=== PATIENT | male | born 1985 | race Caucasian/White ===

== ENCOUNTER 2020-04-08 12:33 | Inpatient (IN) | payer MEDICARE, MEDICAID, SELFPAY ==
[2020-04-08 12:38] VITALS: BP 130/86; PULSE 84; RESP 18; TEMP 36.9; O2SAT 100; BMI 28.7
--- NOTE | 2020-04-08 13:05 | ED.DCSUM_ITS ---
- ER Visit Summary Date of Service: 04/08/20 Chief Complaint: Detox from heroin, nausea, vomiting, and bilateral flank pain History of Present Illness: The patient is a 34 M who presents requesting detox from heroin. Patient states his last use was 8 AM today. Patient states he uses a couple points per day. Patient states he does use daily. Patient states he snorts his heroin. Patient denies any prior detox. Patient denies any suicidal or homicidal ideations. Patient states he also has some abdominal pain and bilateral flank pain. Patient states his pain is dull in his kidney area and is sharp in his abdomen. Patient states Phenergan helps with the nausea. Patient denies any dysuria or hematuria. Patient denies any fevers or chills. Physical Examination: Vital signs are stable. Patient is afebrile. Patient is in no acute distress. Oral mucosa is pink and moist. Neck is supple. Trachea is midline. There is no JVD noted. Heart was regular rate and rhythm. Lungs are clear and equal bilaterally. Abdomen is soft. Bowel sounds are normal. There is no tenderness. There is no rebound or guarding noted. Skin is warm dry. Cranial nerves II through XII are intact. There are no focal motor or sensory deficits noted. Extremities are intact. There is no calf tenderness or edema. Test Results: BC shows a mild leukocytosis of 14.0. Hemoglobin was 17.1. Creatinine was slightly elevated at 1.33. ALT was slightly elevated at 95. Lipase was normal. Urinalysis does not show any evidence of urinary tract infection. Urine tox screen was positive for opiates and cannabinoids. Serum alcohol level was negative. COVID-19 rapid antigen was negative. Emergency Department Course and Treatment: Patient was given IV fluids. Case was discussed with the hospitalist. He will admit the patient to his service. Patient understood and was agreeable with the plan. All questions were answered. Disposition: Admit to hospital Impression: 1. Opiate dependence This note was generated with [employer] dictation software. It may contain incorrect words, spelling, and punctuation that were not noted in review of the chart prior to signing ED Disposition - Plan for ED Patient: Disposition: Acute Care Hospital [facility] Diagnosis: Opiate dependence Referrals: NOT,DEFINED [Primary Care Provider] -
[2020-04-08] MEDS: Ondansetron 4 MG/2 ML Vial IV (13:13)
[2020-04-08 13:14] LABS: Bacteria 0 SEEN /hpf (None Seen); Red Blood Cells-Urine 0 SEEN /hpf (0-5); Squamous Epithelial Cells - UA 0 SEEN /hpf (0-5)
[2020-04-08 13:17] LABS: Color, Urine Yellow (Yellow); Glucose, Dipstick Normal (Normal); Leukocyte Esterase-Dipstick 25 /ul (Negative); Nitrite-Dipstick Negative (Negative); Occult Blood-Urine 25 /ul (Negative); Protein-Dipstick 100 mg/dl (Negative); Specific Gravity, Urine 1.025 (1.002-1.030); Urine Clarity Clear (Clear); Urine Urobilinogen 4 mg/dl (Normal)
[2020-04-08 13:18] LABS: Ketone-Dipstick 150 mg/dl (Negative); Urine Bilirubin Dipstick 1 mg/dL (Negative)
[2020-04-08 13:23] LABS: Absolute Lymphocyte Count 1.48 X10^3/uL (0.83-4.51); Absolute Neutrophil Count 11.4 X10^3/uL (2.0-7.7); Basophil# 0.04 X10^3/uL; Basophil% 0.3 % (0-1); Hemoglobin 17.1 g/dL (13.0-16.5); Lymphocyte # 1.48 X10^3/ul (4.0); Lymphocyte % 10.6 % (19-41); Mean Corp Hgb Conc 33.5 g/dL (32-36); Mean Corpuscular Hgb 27.2 pg (27.0-32.0); Mean Corpuscular Volume 81.2 fL (80-94); Mean Platelet Vol. 9.7 fl (6.2-12.0); Monocyte# 1.05 X10^3/uL; Monocyte% 7.5 % (0-10); NRBC Flagged by Analyzer 0 % (0-5); Neutrophil % 81.2 % (47-70); Platelet Count 359 K/mm3 (150-450); RBC Distribution Width CV 13.5 % (11.6-14.6); RBC Distribution Width SD 39.7 fl (35.1-43.9); Red Blood Count 6.28 M/mm3 (4.6-6.2)
[2020-04-08 13:25] LABS: Mucous, Urine 2+ /hpf (<or=2+); White Blood Cells 0-5 SEEN /hpf (0-5)
[2020-04-08 13:26] LABS: Hyaline Cast 0-5 SEEN /lpf (0-5)
[2020-04-08 13:36] LABS: Amphetamine Urine VISTA NEGATIVE (<1000 ng/mL); Barbiturate Urine VISTA NEGATIVE (< 200 ng/mL); Benzodiazepine Urine VISTA NEGATIVE (< 200 ng/mL); Cocaine Urine VISTA NEGATIVE (< 300 ng/mL); Ecstacy Urine VISTA NEGATIVE (< 500 ng/mL); Methadone Urine VISTA NEGATIVE (< 300 ng/mL); PCP Urine VISTA NEGATIVE (< 25 ng/mL); THC Urine VISTA POSITIVE (< 50 ng/mL); Vista UDS pH Range 6
[2020-04-08 13:40] LABS: ALB/GLOB Ratio 1.1 RATIO (0.9-2.4); AST(SGOT) 33 U/L (15-37); Alanine Aminotransfer ALT/SGPT 95 U/L (16-61); Albumin, Serum 4.3 g/dL (3.2-5.0); Alkaline Phosphatase 88 U/L (45-117); Anion Gap 11 (5-15); BUN 17 mg/dL (7-18); BUN/Creat Ratio 12.8 RATIO (10-20); Calcium,Total 9.5 mg/dL (8.5-10.1); Chloride 98 mmol/L (98-107); Creatinine, Serum 1.33 mg/dL (0.70-1.30); EST Glomerular Filtration Rate 66 mL/min (>60); Est Glom Filt Rate - Afr Amer 79 mL/min (>60); Estimated Creatinine Clearance 94.42 ml/min; Globulin 3.8 g/dL (2.2-4.2); Glucose 139 mg/dL (74-106); Lipase 45 U/L (73-393); Potassium 3.3 mmol/L (3.5-5.1); Protein, Total 8.1 g/dL (6.4-8.2); Sodium Level 136 mmol/L (136-145)
[2020-04-08 13:48] LABS: Alcohol, Blood (Medical)-Serum < 3.0 mg/dL
[2020-04-08 14:34] VITALS: BMI 28.7
--- NOTE | 2020-04-08 14:41 | CM.ED ---
SOCIAL WORK Reason for Consult: Substance Abuse-requesting detox from heroin Met with patient in room. Introduced role and reason for referral. Patient states follows with [facility] and was sent in by [facility] for detox. Patient reports last use of heroin was at 8am this morning. Support and encouragement provided. Call to Deyanira with [facility] to update on patient's admission. Plan: BOOKER Holguin, GARMENT WORKER, SECURITY PROFESSIONAL
[2020-04-08 15:02] VITALS: BP 130/86; PULSE 84; RESP 18; TEMP 36.9; O2SAT 100
--- NOTE | 2020-04-08 15:08 | HP.PCM_ITS ---
History of Present Illness Date of Admission: 04/08/20 Chief Complaint: Opiate detox The patient is a 34 year old M with a PMH as below presents to the hospital after using heroin this morning at 8 AM. He states that he had been clean previously for about a year and a half using a 12-step program however he r elapsed and now would like to try to get clean again. He does not use IV heroin he only snorts it. Denies any hepatitis C or HIV history and states that he does not use needles. He said that he also had some nausea and vomiting that started last night though he feels okay today. He does have some bilateral flank pain which is similar to what he had about a month ago when he was at [facility] and told that he had some kidney damage. In the ER today his creatinine is 1.33 with potassium of 3.3 does have a white count of 14 with a hemoglobin of 17.1, but denies any fevers or chills, or any illness other than trying to have some withdrawal symptoms from heroin. Past Medical History Allergies No Known Allergies Allergy (Verified 04/08/20 12:38) Home Medications: Ambulatory Orders Medication Instructions Recorded Benztropine [Cogentin] 1 mg PO QHS 04/08/20 Divalproex Sodium [Depakote ER] 500 mg PO BID 04/08/20 Papaya [Papaya Enzyme] 1 ea PO DAILY 04/08/20 Risperidone 2 mg PO BID 04/08/20 proMETHazine tablet [Phenergan 25 mg PO Q6H PRN PRN 04/08/20 tablet] traZODone [Desyrel] 50 mg PO QHS 04/08/20 Surgical History: - - Ankle surgery Smoking Status: Current every day smoker Tobacco Use: Cigarettes, Cigars, Chew, Pipe, Vapor Alcohol: None Drugs: Heroin - *Family History Maternal History Items: No pertinent history Paternal History Items: Heart Disease Review of Systems Constitutional: Denies: Chills, Fever, Weight Change HEENT: Denies: Head Aches, Sinus Congestion, Sinus Drainage Cardiovascular: Denies: Chest Pain, Palpitations Respiratory: Denies: Cough, Shortness of breath at rest, Sputum production Gastrointestinal: Reports: Nausea, Vomiting. Denies: Abdominal Pain Genitourinary: Denies: Dysuria Musculoskeletal: Denies: Joint Pain, Joint Tenderness Skin: Denies: Rash, Wounds Neurological: Reports: Tremor. Denies: Focal weakness, Numbness, Tingling Psychiatric: Denies: Anxiety, Depression Hematologic/ Lymphatic: Denies: Easy Bruising, Easy Bleeding VTE Information - Inpt Only VTE Present on Admission: No Patient Problems: Active and Suspected Problems Opiate dependence (Acute) - Physical Exam Vitals/I&O's: Vital Signs Temp Pulse Resp BP Pulse Ox 98.5 F 84 18 130/86 H 100 04/08/20 15:02 04/08/20 15:02 04/08/20 15:02 04/08/20 15:02 04/08/20 15:02 Oxygen Delivery Method Room Air Weight: 230 lb Body Mass Index (BMI) 28.7 General: Alert, Oriented x3, Cooperative, No apparent distress HEENT: Atraumatic, PERRLA, EOMI, Normocephalic Oral: Dry Mucosa Neck: Supple, No JVD Lungs: Clear to auscultation, Normal air movement, No rhonchi, No wheeze, No rales Cardiovascular: Regular rate, Regular Rhythm, Normal S1, Normal S2, No murmurs Abdomen: Soft, Non Tender, Non-Distended, No Hepato-splenomegaly Extremities: No edema, Capillary Refill Less than 3 Seconds Skin: No rashes, No breakdown Neurological: Neuro grossly intact, Sensory exam intact to light touch and pain Psych/Mental Status: Restless Microbiology Past 72 Hours 04/08/20 13:02 Mucosa - Nose SARS-CoV-2 Antigen (Rapid) - Final Laboratory Results 04/08/20 12:40: Urine Color Yellow, Urine Clarity Clear, Urine pH 6.0, Ur Specific [place] 1.025, Urine Protein 100 H, Urine Glucose (UA) Normal, Urine Ketones 150 H, Urine Occult Blood 25 H, Urine Nitrite Negative, Urine Bilirubin 1 H, Urine Urobilinogen 4 H, Ur Leukocyte Esterase 25 H, Urine RBC 0 SEEN, Urine WBC 0-5 SEEN, Ur Squamous Epith Cells 0 SEEN, Urine Bacteria 0 SEEN, Hyaline Casts 0-5 SEEN, Urine Mucus 2+ 04/08/20 12:40: Urine Opiates Screen POSITIVE H, Urine Methadone Screen NEGATIVE, Ur Barbiturates Screen NEGATIVE, Ur Phencyclidine Scrn NEGATIVE, Ur Amphetamines Screen NEGATIVE, U Methamphetamin-MDMA NEGATIVE, U Benzodiazepines Scrn NEGATIVE, Urine Cocaine Screen NEGATIVE, U Cannabinoids Screen POSITIVE H, Ur Drug Screen Comment 04/08/20 13:16: WBC 14.0 H, RBC 6.28 H, Hgb 17.1 H, Hct 51.0, MCV 81.2, MCH 27.2, MCHC 33.5, RDW Std Deviation 39.7, RDW Coeff of Jethro 13.5, Plt Count 359, MPV 9.7, Immature Gran % (Auto) 0.400, Neut % (Auto) 81.2 H, Lymph % (Auto) 10.6 L, [place] % (Auto) 7.5, Eos % (Auto) 0.0, Baso % (Auto) 0.3, Absolute Neuts (auto) 11.4 H, Absolute Lymphs (auto) 1.48, Nucleated RBC % 0 04/08/20 13:16: Sodium 136, Potassium 3.3 L, Chloride 98, Carbon Dioxide 27.0, Anion Gap 11, BUN 17, Creatinine 1.33 H, Estim Creat Clear Calc 94.42, Est GFR (MDRD) Af Amer 79, Est GFR (MDRD) Non-Af 66, BUN/Creatinine Ratio 12.8, Glucose 139 H, Calcium 9.5, Total Bilirubin 0.50, AST 33, ALT 95 H, Alkaline Phosphatase 88, Total Protein 8.1, Albumin 4.3, Globulin 3.8, Albumin/Globulin Ratio 1.1, Lipase 45 L 04/08/20 13:16: Ethyl Alcohol < 3.0 Current Medications Benztropine Mesylate (Benztropine 2 Mg Tablet) 1 mg PO QHS [facility] Divalproex Sodium (Divalproex (Er) 500 Mg Tablet) 500 mg PO BID [facility] Non-Formulary Medication (Risperidone) 2 mg PO BID [facility] Promethazine HCl (Promethazine 25 Mg Tablet) 25 mg PO Q6H PRN PRN PRN Reason: NAUSEA Sodium Chloride (0.9% Saline Lock 10 Ml Syringe) 10 - 40 ml IV UD PRN PRN Reason: SALINE FLUSH Trazodone HCl (Trazodone 50 Mg Tablet) 50 mg PO QHS [facility] Assessment/Plan All Active Problems Opiate dependence (Acute) 1. Heroin detox/bipolar disorder -We will continue with the opiate withdrawal protocol -We will provide him with Zofran and can continue his home Phenergan for his nausea and vomiting -He did receive a liter of fluid in the ER, creatinine was elevated to 1.33 though we do not know what his baseline is he said that he recently had an episode of kidney disease about a month and a half ago at [facility]. Unsure if this represents an ERASMO or if this is his baseline -Repeat CBC and BMP in the morning -We will replace potassium -We will continue with his Cogentin, Depakote, Risperdal, trazodone DVT: Low risk Inpatient E&M: 52252 Init Hosp L2
[2020-04-08 15:26] VITALS: BMI 25.9
[2020-04-08] MEDS: 0.9% Normal Saline 1,000 ML 999 ML IV (15:51)
[2020-04-08] MEDS: Buprenorphine HCl 2 MG TAB.SUBL SL (15:55)
[2020-04-08] MEDS: Methocarbamol 750 MG Tablet 1500 MG PO ×2 (15:55→22:03)
[2020-04-08] MEDS: cloNIDine HCl 0.1 MG Tablet PO (15:55)
[2020-04-08] MEDS: Dicyclomine 10 MG Capsule 20 MG PO ×2 (15:55→22:04)
[2020-04-08] MEDS: hydrOXYzine PAM 25 MG Capsule 50 MG PO (15:55)
[2020-04-08] MEDS: Ondansetron 8 MG Tablet PO (15:56)
[2020-04-08] MEDS: 0.9% Saline Lock 10 ML Syringe IV (17:00)
[2020-04-08 17:46] VITALS: BP 110/77; PULSE 83; RESP 18; TEMP 36.9; O2SAT 95
[2020-04-08] MEDS: Potassium Chloride Oral Tablet 20 MEQ 40 MEQ PO (17:52)
[2020-04-08 21:22] VITALS: BP 109/69; PULSE 71; RESP 18; TEMP 36.9; O2SAT 96
[2020-04-08] MEDS: Divalproex (ER) 500 MG Tablet PO (21:41)
[2020-04-08] MEDS: RisperiDONE 2 MG Tablet PO (21:42)
[2020-04-08] MEDS: proMETHazine 25 MG Tablet PO (21:45)
[2020-04-08] MEDS: Benztropine 2 MG Tablet 1 MG PO (22:04)
[2020-04-09 00:32] VITALS: BP 116/82; PULSE 81; RESP 18; TEMP 36.9; O2SAT 96
[2020-04-09] MEDS: Buprenorphine HCl 2 MG TAB.SUBL SL ×4 (00:37→23:40)
[2020-04-09 05:02] VITALS: BP 119/95; PULSE 62; RESP 18; TEMP 36.8; O2SAT 99
[2020-04-09] MEDS: cloNIDine HCl 0.1 MG Tablet PO (05:18)
[2020-04-09 05:35] LABS: Absolute Lymphocyte Count 5.03 X10^3/uL (0.83-4.51); Absolute Neutrophil Count 3.6 X10^3/uL (2.0-7.7); Basophil# 0.02 X10^3/uL; Basophil% 0.2 % (0-1); Eosinophil# 0.11 X10^3/uL; Eosinophils% 1.1 % (0-5); Hematocrit 45.6 % (40-54); Hemoglobin 14.6 g/dL (13.0-16.5); Lymphocyte # 5.03 X10^3/ul (4.0); Mean Corpuscular Hgb 26.7 pg (27.0-32.0); Mean Corpuscular Volume 83.5 fL (80-94); Mean Platelet Vol. 9.4 fl (6.2-12.0); Monocyte# 1.09 X10^3/uL; NRBC Flagged by Analyzer 0 % (0-5); Neutrophil % 36.5 % (47-70); POSITIVE DIFFERENTIAL YES; Platelet Count 272 K/mm3 (150-450); RBC Distribution Width CV 13.8 % (11.6-14.6); RBC Distribution Width SD 42.1 fl (35.1-43.9); Red Blood Count 5.46 M/mm3 (4.6-6.2); White Blood Count 9.9 K/mm3 (4.4-11.0)
[2020-04-09 05:49] LABS: Differential Indicated SCAN CRITERIA MET
[2020-04-09 05:56] LABS: Anion Gap 8 (5-15); BUN 11 mg/dL (7-18); BUN/Creat Ratio 9.8 RATIO (10-20); Chloride 101 mmol/L (98-107); Creatinine, Serum 1.12 mg/dL (0.70-1.30); EST Glomerular Filtration Rate 80 mL/min (>60); Est Glom Filt Rate - Afr Amer 97 mL/min (>60); Estimated Creatinine Clearance 112.12 ml/min; Glucose 101 mg/dL (74-106); Potassium 3.1 mmol/L (3.5-5.1); Sodium Level 136 mmol/L (136-145)
[2020-04-09 06:09] LABS: Atypical Lymphocyte RARE %; Differential Comment SCANNED
[2020-04-09] MEDS: RisperiDONE 2 MG Tablet PO ×2 (08:00→19:47)
[2020-04-09] MEDS: Divalproex (ER) 500 MG Tablet PO ×2 (08:00→19:47)
[2020-04-09 09:00] VITALS: BP 122/67; PULSE 96; RESP 18; TEMP 36.4; O2SAT 97
--- NOTE | 2020-04-09 10:44 | PCM.PN.HOSP ---
Patient Problems: Active and Suspected Problems Opiate dependence (Acute) Subjective: Doing well, feels better denies any abdominal pain. No new issues overnight Vitals/I&O's: Vital Signs Temp Pulse Resp BP Pulse Ox 97.6 F L 96 18 122/67 H 97 04/09/20 09:00 04/09/20 09:00 04/09/20 09:00 04/09/20 09:00 04/09/20 09:00 Oxygen Delivery Method Room Air Weight: 207 lb 7.28 oz Body Mass Index (BMI) 25.9 Intake and Output for Last 24 Hours 04/07/20 04/08/20 04/09/20 23:59 23:59 23:59 Intake Total 1350 / 1350 1080 / 1080 Output Total 50 / 50 Balance 1300 / 1300 1080 / 1080 General: Alert, Oriented x3, Cooperative, No apparent distress HEENT: Atraumatic, PERRLA, EOMI, Normocephalic Oral: Dry Mucosa Neck: Supple, No JVD Lungs: Clear to auscultation, Normal air movement, No rhonchi, No wheeze, No rales Cardiovascular: Regular rate, Regular Rhythm, Normal S1, Normal S2, No murmurs Abdomen: Soft, Non Tender, Non-Distended, No Hepato-splenomegaly Extremities: No edema, Capillary Refill Less than 3 Seconds Skin: No rashes, No breakdown Neurological: Neuro grossly intact, Sensory exam intact to light touch and pain Psych/Mental Status: Normal affect, appropriate Microbiology Past 72 Hours 04/08/20 13:02 Mucosa - Nose SARS-CoV-2 Antigen (Rapid) - Final Laboratory Results 04/08/20 12:40: Urine Color Yellow, Urine Clarity Clear, Urine pH 6.0, Ur Specific [place] 1.025, Urine Protein 100 H, Urine Glucose (UA) Normal, Urine Ketones 150 H, Urine Occult Blood 25 H, Urine Nitrite Negative, Urine Bilirubin 1 H, Urine Urobilinogen 4 H, Ur Leukocyte Esterase 25 H, Urine RBC 0 SEEN, Urine WBC 0-5 SEEN, Ur Squamous Epith Cells 0 SEEN, Urine Bacteria 0 SEEN, Hyaline Casts 0-5 SEEN, Urine Mucus 2+ 04/08/20 12:40: Urine Opiates Screen POSITIVE H, Urine Methadone Screen NEGATIVE, Ur Barbiturates Screen NEGATIVE, Ur Phencyclidine Scrn NEGATIVE, Ur Amphetamines Screen NEGATIVE, U Methamphetamin-MDMA NEGATIVE, U Benzodiazepines Scrn NEGATIVE, Urine Cocaine Screen NEGATIVE, U Cannabinoids Screen POSITIVE H, Ur Drug Screen Comment 04/08/20 13:16: WBC 14.0 H, RBC 6.28 H, Hgb 17.1 H, Hct 51.0, MCV 81.2, MCH 27.2, MCHC 33.5, RDW Std Deviation 39.7, RDW Coeff of Jethro 13.5, Plt Count 359, MPV 9.7, Immature Gran % (Auto) 0.400, Neut % (Auto) 81.2 H, Lymph % (Auto) 10.6 L, [place] % (Auto) 7.5, Eos % (Auto) 0.0, Baso % (Auto) 0.3, Absolute Neuts (auto) 11.4 H, Absolute Lymphs (auto) 1.48, Nucleated RBC % 0 04/08/20 13:16: Sodium 136, Potassium 3.3 L, Chloride 98, Carbon Dioxide 27.0, Anion Gap 11, BUN 17, Creatinine 1.33 H, Estim Creat Clear Calc 94.42, Est GFR (MDRD) Af Amer 79, Est GFR (MDRD) Non-Af 66, BUN/Creatinine Ratio 12.8, Glucose 139 H, Calcium 9.5, Total Bilirubin 0.50, AST 33, ALT 95 H, Alkaline Phosphatase 88, Total Protein 8.1, Albumin 4.3, Globulin 3.8, Albumin/Globulin Ratio 1.1, Lipase 45 L 04/08/20 13:16: Ethyl Alcohol < 3.0 04/09/20 05:25: WBC 9.9, RBC 5.46, Hgb 14.6, Hct 45.6, MCV 83.5, MCH 26.7 L, MCHC 32.0, RDW Std Deviation 42.1, RDW Coeff of Jethro 13.8, Plt Count 272, MPV 9.4, Immature Gran % (Auto) 0.200, Neut % (Auto) 36.5 L, Lymph % (Auto) 51.0 H, [place] % (Auto) 11.0 H, Eos % (Auto) 1.1, Baso % (Auto) 0.2, Absolute Neuts (auto) 3.6, Absolute Lymphs (auto) 5.03 H, Nucleated RBC % 0, Differential Comment SCANNED, Atypical Lymphocytes RARE 04/09/20 05:25: Sodium 136, Potassium 3.1 L, Chloride 101, Carbon Dioxide 27.0, Anion Gap 8, BUN 11, Creatinine 1.12, Estim Creat Clear Calc 112.12, Est GFR (MDRD) Af Amer 97, Est GFR (MDRD) Non-Af 80, BUN/Creatinine Ratio 9.8 L, Glucose 101, Calcium 8.0 L Current Medications Benztropine Mesylate (Benztropine 2 Mg Tablet) 1 mg PO QHS [facility] Last Admin: 04/08/20 22:04 Dose: 1 mg Documented by: Buprenorphine HCl (Buprenorphine Hcl 2 Mg Tab.Subl) 4 mg SL Q8H LYNN; Taper Stop: 04/11/20 15:59 Last Admin: 04/09/20 07:59 Dose: 4 mg Documented by: Clonidine (Clonidine Hcl 0.1 Mg Tablet) 0.1 mg PO Q8H PRN PRN PRN Reason: RESTLESSNESS Last Admin: 04/09/20 05:18 Dose: 0.1 mg Documented by: Dicyclomine HCl (Dicyclomine 10 Mg Capsule) 20 mg PO Q6H PRN PRN PRN Reason: Abdominal Discomfort Last Admin: 04/08/20 22:04 Dose: 20 mg Documented by: Divalproex Sodium (Divalproex (Er) 500 Mg Tablet) 500 mg PO BID [facility] Last Admin: 04/09/20 08:00 Dose: 500 mg Documented by: Gabapentin (Gabapentin 300 Mg Capsule) 300 mg PO Q8H PRN PRN PRN Reason: moderate to severe anxiety Hydroxyzine Pamoate (Hydroxyzine Roxi 25 Mg Capsule) 50 mg PO Q6H PRN PRN PRN Reason: mild anxiety Last Admin: 04/08/20 15:55 Dose: 50 mg Documented by: Loperamide HCl (Loperamide 2 Mg Capsule) 2 mg PO Q4H PRN PRN PRN Reason: LOOSE STOOLS Methocarbamol (Methocarbamol 750 Mg Tablet) 1,500 mg PO Q6H PRN PRN PRN Reason: MUSCLE SPASM Last Admin: 04/08/20 22:03 Dose: 1,500 mg Documented by: Nicotine (Nicotine 21 Mg Patch) 21 mg TD DAILY [facility] Last Admin: 04/09/20 07:59 Dose: 21 mg Documented by: Ondansetron HCl (Ondansetron 8 Mg Tablet) 8 mg PO Q8H PRN PRN PRN Reason: NAUSEA Last Admin: 04/08/20 15:56 Dose: 8 mg Documented by: Ondansetron HCl (Ondansetron 4 Mg/2 Ml Vial) 4 mg IV Q6H PRN PRN PRN Reason: NAUSEA Promethazine HCl (Promethazine 25 Mg Tablet) 25 mg PO Q6H PRN PRN PRN Reason: NAUSEA Last Admin: 04/08/20 21:45 Dose: 25 mg Documented by: Risperidone (Risperidone 2 Mg Tablet) 2 mg PO BID [facility] Last Admin: 04/09/20 08:00 Dose: 2 mg Documented by: Sodium Chloride (0.9% Saline Lock 10 Ml Syringe) 10 - 40 ml IV UD PRN PRN Reason: SALINE FLUSH Last Admin: 04/08/20 17:00 Dose: 10 ml Documented by: Trazodone HCl (Trazodone 100 Mg Tablet) 100 mg PO QHS PRN PRN PRN Reason: INSOMNIA STROKE Vital Signs/Narrative: Vital Signs Temp Pulse Resp BP Pulse Ox 04/09/20 09:00 97.6 F L 96 18 122/67 H 97 Medical Necessity - Tobacco Use Smoking Status: Current every day smoker Tobacco Use: Cigarettes, Cigars, Chew, Pipe, Vapor Assessment/Plan All Active Problems Opiate dependence (Acute) 1. Heroin detox/bipolar disorder -We will continue with the opiate withdrawal protocol -We will provide him with Zofran and can continue his home Phenergan for his nausea and vomiting -He did receive a liter of fluid in the ER, creatinine was elevated to 1.33 though we do not know what his baseline is he said that he recently had an episode of kidney disease about a month and a half ago at [facility]. Repeat kidney function today is 1.12 -We will replace potassium and obtain a BMP in the morning as well as a magnesium and a phosphorus -We will continue with his Cogentin, Depakote, Risperdal, trazodone DVT: Low risk Inpatient E&M: 02750 [facility] Hosp L2
[2020-04-09] MEDS: Potassium Chloride Oral Tablet 20 MEQ 60 MEQ PO (11:49)
[2020-04-09 11:54] VITALS: BP 107/62; PULSE 93; RESP 18; TEMP 36.3; O2SAT 95
--- NOTE | 2020-04-09 11:55 | ADDICTION ---
This underwriter solicitation director met with PT in his room to complete ASAM, MSE, DUDIT assessments and to plan for discharge. All assessments completed, faxed to [facility] and placed in PT's chart on [email or web address] PT to directly admit into [facility] Residential treatment upon d/c from [facility]. [facility] to provide transportation.
--- NOTE | 2020-04-09 14:35 | CASEMGMT ---
Social Work Note Keli from [facility] updated this worker that plan is for pt to direct admit to [facility] Sunday for residential treatment. Plan: Sunday Clarisa Lee MSW, MESS ATTENDANT CREW
[2020-04-09 16:37] VITALS: BP 112/69; PULSE 80; RESP 18; TEMP 36.9; O2SAT 96
--- NOTE | 2020-04-09 16:55 | NURSING ---
reviewed and agree with documentation by MARTIN Cameron
[2020-04-09] MEDS: Benztropine 2 MG Tablet 1 MG PO (19:47)
[2020-04-09] MEDS: Nicotine Polacrilex 2 MG GUM PO (19:47)
[2020-04-09 19:51] VITALS: BP 114/74; PULSE 85; RESP 16; TEMP 36.8; O2SAT 98
[2020-04-10 05:31] VITALS: BP 110/71; PULSE 78; RESP 18; TEMP 36.6; O2SAT 99
[2020-04-10] MEDS: Ondansetron 8 MG Tablet PO (06:11)
[2020-04-10] MEDS: Dicyclomine 10 MG Capsule 20 MG PO (06:11)
[2020-04-10 06:54] LABS: Anion Gap 5 (5-15); BUN 14 mg/dL (7-18); BUN/Creat Ratio 12.5 RATIO (10-20); Calcium,Total 8.1 mg/dL (8.5-10.1); Chloride 105 mmol/L (98-107); Creatinine, Serum 1.12 mg/dL (0.70-1.30); EST Glomerular Filtration Rate 80 mL/min (>60); Est Glom Filt Rate - Afr Amer 97 mL/min (>60); Estimated Creatinine Clearance 112.12 ml/min; Glucose 95 mg/dL (74-106); Magnesium 2.3 mg/dL (1.6-2.6); Potassium 3.8 mmol/L (3.5-5.1); Sodium Level 140 mmol/L (136-145)
--- NOTE | 2020-04-10 08:16 | PCM.PN.HOSP ---
Patient Problems: Active and Suspected Problems Opiate dependence (Acute) Reason for Visit: Follow-up on acute opiate withdrawal Subjective: Patient seen and examined. No acute events. Denies fever or chills. Objective: Physical exam: General: Alert, Oriented x3, Cooperative, No apparent distress HEENT: Atraumatic, PERRLA, EOMI, Normocephalic Oral: Dry Mucosa Neck: Supple, No JVD Lungs: Clear to auscultation, Normal air movement, No rhonchi, No wheeze, No rales Cardiovascular: Regular rate, Regular Rhythm, Normal S1, Normal S2, No murmurs Abdomen: Soft, Non Tender, Non-Distended, No Hepato-splenomegaly Extremities: No edema, Capillary Refill Less than 3 Seconds Skin: No rashes, No breakdown Neurological: Neuro grossly intact, Sensory exam intact to light touch and pain Psych/Mental Status: Normal affect, appropriate Vitals/I&O's: Vital Signs Temp Pulse Resp BP Pulse Ox 97.8 F 78 18 110/71 99 04/10/20 05:31 04/10/20 05:31 04/10/20 05:31 04/10/20 05:31 04/10/20 05:31 Oxygen Delivery Method Room Air Weight: 94.1 kg Body Mass Index (BMI) 25.9 Intake and Output for Last 24 Hours 04/08/20 04/09/20 04/10/20 23:59 23:59 23:59 Intake Total 1350 / 1350 2430 / 2430 Output Total 50 / 50 Balance 1300 / 1300 2430 / 2430 Microbiology Past 72 Hours 04/08/20 13:02 Mucosa - Nose SARS-CoV-2 Antigen (Rapid) - Final Laboratory Results 04/10/20 06:27: Sodium 140, Potassium 3.8, Chloride 105, Carbon Dioxide 30.0, Anion Gap 5, BUN 14, Creatinine 1.12, Estim Creat Clear Calc 112.12, Est GFR (MDRD) Af Amer 97, Est GFR (MDRD) Non-Af 80, BUN/Creatinine Ratio 12.5, Glucose 95, Calcium 8.1 L, Phosphorus 3.0, Magnesium 2.3 Current Medications Benztropine Mesylate (Benztropine 2 Mg Tablet) 1 mg PO QHS [facility] Last Admin: 04/09/20 19:47 Dose: 1 mg Documented by: Buprenorphine HCl (Buprenorphine Hcl 2 Mg Tab.Subl) 2 mg SL Q8H LYNN; Taper Stop: 04/11/20 15:59 Last Admin: 04/10/20 08:11 Dose: Not Given Documented by: Clonidine (Clonidine Hcl 0.1 Mg Tablet) 0.1 mg PO Q8H PRN PRN PRN Reason: RESTLESSNESS Last Admin: 04/09/20 05:18 Dose: 0.1 mg Documented by: Dicyclomine HCl (Dicyclomine 10 Mg Capsule) 20 mg PO Q6H PRN PRN PRN Reason: Abdominal Discomfort Last Admin: 04/10/20 06:11 Dose: 20 mg Documented by: Divalproex Sodium (Divalproex (Er) 500 Mg Tablet) 500 mg PO BID [facility] Last Admin: 04/09/20 19:47 Dose: 500 mg Documented by: Gabapentin (Gabapentin 300 Mg Capsule) 300 mg PO Q8H PRN PRN PRN Reason: moderate to severe anxiety Hydroxyzine Pamoate (Hydroxyzine Roxi 25 Mg Capsule) 50 mg PO Q6H PRN PRN PRN Reason: mild anxiety Last Admin: 04/08/20 15:55 Dose: 50 mg Documented by: Loperamide HCl (Loperamide 2 Mg Capsule) 2 mg PO Q4H PRN PRN PRN Reason: LOOSE STOOLS Methocarbamol (Methocarbamol 750 Mg Tablet) 1,500 mg PO Q6H PRN PRN PRN Reason: MUSCLE SPASM Last Admin: 04/08/20 22:03 Dose: 1,500 mg Documented by: Nicotine (Nicotine 21 Mg Patch) 21 mg TD DAILY [facility] Last Admin: 04/09/20 07:59 Dose: 21 mg Documented by: Nicotine Polacrilex (Nicotine Polacrilex 2 Mg Gum) 2 mg PO Q2H PRN PRN PRN Reason: Nicotine Craving Last Admin: 04/09/20 19:47 Dose: 2 mg Documented by: Ondansetron HCl (Ondansetron 8 Mg Tablet) 8 mg PO Q8H PRN PRN PRN Reason: NAUSEA Last Admin: 04/10/20 06:11 Dose: 8 mg Documented by: Ondansetron HCl (Ondansetron 4 Mg/2 Ml Vial) 4 mg IV Q6H PRN PRN PRN Reason: NAUSEA Promethazine HCl (Promethazine 25 Mg Tablet) 25 mg PO Q6H PRN PRN PRN Reason: NAUSEA Last Admin: 04/08/20 21:45 Dose: 25 mg Documented by: Risperidone (Risperidone 2 Mg Tablet) 2 mg PO BID [facility] Last Admin: 04/09/20 19:47 Dose: 2 mg Documented by: Sodium Chloride (0.9% Saline Lock 10 Ml Syringe) 10 - 40 ml IV UD PRN PRN Reason: SALINE FLUSH Last Admin: 04/08/20 17:00 Dose: 10 ml Documented by: Trazodone HCl (Trazodone 100 Mg Tablet) 100 mg PO QHS PRN PRN PRN Reason: INSOMNIA STROKE Vital Signs/Narrative: Vital Signs Temp Pulse Resp BP Pulse Ox 04/10/20 05:31 97.8 F 78 18 110/71 99 Medical Necessity - Tobacco Use Smoking Status: Current every day smoker Tobacco Use: Cigarettes, Cigars, Chew, Pipe, Vapor Assessment/Plan All Active Problems Opiate dependence (Acute) 1. Acute opiate withdrawal, continue on Subutex withdrawal protocol 2. Nicotine dependence, continue replacement 3. Hypokalemia, replaced 4. Chronic Kidney stage III, creatinine is improved, will continue to monitor 5. DVT Prophylaxis?low risk, early ambulation recommended Inpatient E&M: 25381 Subs Hosp L2
[2020-04-10] MEDS: Divalproex (ER) 500 MG Tablet PO ×2 (09:07→21:21)
[2020-04-10] MEDS: RisperiDONE 2 MG Tablet PO ×2 (09:08→21:21)
[2020-04-10 11:15] VITALS: BP 118/68; PULSE 70; RESP 18; TEMP 37; O2SAT 99
[2020-04-10 16:29] VITALS: BP 107/72; PULSE 64; RESP 18; TEMP 37.1; O2SAT 99
[2020-04-10] MEDS: Benztropine 2 MG Tablet 1 MG PO (21:20)
[2020-04-10 22:12] VITALS: BP 114/68; PULSE 73; RESP 16; TEMP 36.8; O2SAT 95
[2020-04-11 04:26] VITALS: BP 104/70; PULSE 66; RESP 16; TEMP 36.4; O2SAT 98
[2020-04-11 04:30] VITALS: O2SAT 98
[2020-04-11] MEDS: Divalproex (ER) 500 MG Tablet PO ×2 (09:26→21:03)
[2020-04-11] MEDS: RisperiDONE 2 MG Tablet PO ×2 (09:27→21:03)
[2020-04-11 09:59] VITALS: BP 112/70; PULSE 90; RESP 16; TEMP 36.8; O2SAT 98
--- NOTE | 2020-04-11 10:43 | PCM.PN.HOSP ---
Patient Problems: Active and Suspected Problems Opiate dependence (Acute) Reason for Visit: Follow-up on acute opiate withdrawal Subjective: Patient seen and examined. No acute events. Denies fever or chills. Objective: Physical exam: General: Alert, Oriented x3, Cooperative, No apparent distress HEENT: Atraumatic, PERRLA, EOMI, Normocephalic Oral: Dry Mucosa Neck: Supple, No JVD Lungs: Clear to auscultation, Normal air movement, No rhonchi, No wheeze, No rales Cardiovascular: Regular rate, Regular Rhythm, Normal S1, Normal S2, No murmurs Abdomen: Soft, Non Tender, Non-Distended, No Hepato-splenomegaly Extremities: No edema, Capillary Refill Less than 3 Seconds Skin: No rashes, No breakdown Neurological: Neuro grossly intact, Sensory exam intact to light touch and pain Psych/Mental Status: Normal affect, appropriate Vitals/I&O's: Vital Signs Temp Pulse Resp BP Pulse Ox 98.3 F 90 16 112/70 98 04/11/20 09:59 04/11/20 09:59 04/11/20 09:59 04/11/20 09:59 04/11/20 09:59 Oxygen Delivery Method Room Air Weight: 94.1 kg Body Mass Index (BMI) 25.9 Intake and Output for Last 24 Hours 04/09/20 04/10/20 04/11/20 23:59 23:59 23:59 Intake Total 2430 / 2430 2100 / 2100 Output Total 50 / 50 Balance 2430 / 2430 2049 / 2049 Microbiology Past 72 Hours 04/08/20 13:02 Mucosa - Nose SARS-CoV-2 Antigen (Rapid) - Final Current Medications Benztropine Mesylate (Benztropine 2 Mg Tablet) 1 mg PO QHS [facility] Last Admin: 04/10/20 21:20 Dose: 1 mg Documented by: Buprenorphine HCl (Buprenorphine Hcl 2 Mg Tab.Subl) 2 mg SL Q12H [facility]; Taper Stop: 04/11/20 15:59 Last Admin: 04/11/20 05:05 Dose: Not Given Documented by: Clonidine (Clonidine Hcl 0.1 Mg Tablet) 0.1 mg PO Q8H PRN PRN PRN Reason: RESTLESSNESS Last Admin: 04/09/20 05:18 Dose: 0.1 mg Documented by: Dicyclomine HCl (Dicyclomine 10 Mg Capsule) 20 mg PO Q6H PRN PRN PRN Reason: Abdominal Discomfort Last Admin: 04/10/20 06:11 Dose: 20 mg Documented by: Divalproex Sodium (Divalproex (Er) 500 Mg Tablet) 500 mg PO BID [facility] Last Admin: 04/11/20 09:26 Dose: 500 mg Documented by: Gabapentin (Gabapentin 300 Mg Capsule) 300 mg PO Q8H PRN PRN PRN Reason: moderate to severe anxiety Hydroxyzine Pamoate (Hydroxyzine Roxi 25 Mg Capsule) 50 mg PO Q6H PRN PRN PRN Reason: mild anxiety Last Admin: 04/08/20 15:55 Dose: 50 mg Documented by: Loperamide HCl (Loperamide 2 Mg Capsule) 2 mg PO Q4H PRN PRN PRN Reason: LOOSE STOOLS Methocarbamol (Methocarbamol 750 Mg Tablet) 1,500 mg PO Q6H PRN PRN PRN Reason: MUSCLE SPASM Last Admin: 04/08/20 22:03 Dose: 1,500 mg Documented by: Nicotine (Nicotine 21 Mg Patch) 21 mg TD DAILY [facility] Last Admin: 04/11/20 09:26 Dose: 21 mg Documented by: Nicotine Polacrilex (Nicotine Polacrilex 2 Mg Gum) 2 mg PO Q2H PRN PRN PRN Reason: Nicotine Craving Last Admin: 04/09/20 19:47 Dose: 2 mg Documented by: Ondansetron HCl (Ondansetron 8 Mg Tablet) 8 mg PO Q8H PRN PRN PRN Reason: NAUSEA Last Admin: 04/10/20 06:11 Dose: 8 mg Documented by: Ondansetron HCl (Ondansetron 4 Mg/2 Ml Vial) 4 mg IV Q6H PRN PRN PRN Reason: NAUSEA Promethazine HCl (Promethazine 25 Mg Tablet) 25 mg PO Q6H PRN PRN PRN Reason: NAUSEA Last Admin: 04/08/20 21:45 Dose: 25 mg Documented by: Risperidone (Risperidone 2 Mg Tablet) 2 mg PO BID [facility] Last Admin: 04/11/20 09:27 Dose: 2 mg Documented by: Sodium Chloride (0.9% Saline Lock 10 Ml Syringe) 10 - 40 ml IV UD PRN PRN Reason: SALINE FLUSH Last Admin: 04/08/20 17:00 Dose: 10 ml Documented by: Trazodone HCl (Trazodone 100 Mg Tablet) 100 mg PO QHS PRN PRN PRN Reason: INSOMNIA STROKE Vital Signs/Narrative: Vital Signs Temp Pulse Resp BP Pulse Ox 04/11/20 09:59 98.3 F 90 16 112/70 98 Medical Necessity - Tobacco Use Smoking Status: Current every day smoker Tobacco Use: Cigarettes, Cigars, Chew, Pipe, Vapor Assessment/Plan All Active Problems Opiate dependence (Acute) 1. Acute opiate withdrawal, improving, continue on Subutex withdrawal protocol 2. Nicotine dependence, continue replacement 3. Hypokalemia, resolved 4. Chronic Kidney stage III, creatinine is improved, will continue to monitor 5. DVT Prophylaxis?low risk, early ambulation recommended Inpatient E&M: 51448 Subs Hosp L2
[2020-04-11 16:38] VITALS: BP 108/68; PULSE 78; RESP 16; TEMP 37.2; O2SAT 98
[2020-04-11] MEDS: Nicotine Polacrilex 2 MG GUM PO (18:28)
[2020-04-11] MEDS: Benztropine 2 MG Tablet 1 MG PO (21:03)
[2020-04-11 23:00] VITALS: BP 122/73; PULSE 74; RESP 16; TEMP 36.9; O2SAT 99
[2020-04-12 06:00] VITALS: BP 127/78; PULSE 85; RESP 16; TEMP 37.2; O2SAT 99
--- NOTE | 2020-04-12 08:39 | DCINST_ITS ---
- Discharge Diagnoses Current Active Problems: Current Active and Chronic Problems Opiate dependence (Acute) You will use the following diet at home:: Regular Your food should be the consistency of: Regular Discharge Activity: May Not Drive - until sees PCP Weight Bearing Status: Weight bearing as tolerated Call your doctor if you observe: Fever of 101 or Higher, Coldness, Increased Pain, Numbness or Tingling, Change in Color, Inability to urinate, Shortness of breath, Dizziness, Fainting spells, Chest pain, Prolonged hiccoughing, Increased palpitations (irregular heartbeat), Calf discomfort, Uncontrolled pain Allergies/Adverse Reactions: Allergies No Known Allergies Allergy (Verified 04/08/20 12:38) Medications to take at Discharge Benztropine [Cogentin] 1 mg PO QHS 04/08/20 Divalproex Sodium [Depakote ER] 500 mg PO BID 04/08/20 Papaya [Papaya Enzyme] 1 ea PO DAILY 04/08/20 Risperidone 2 mg PO BID 04/08/20 proMETHazine tablet [Phenergan tablet] 25 mg PO Q6H PRN PRN 04/08/20 traZODone [Desyrel] 50 mg PO QHS 04/08/20 Primary Care Physician: NOT,DEFINED [NON-STAFF] - Please follow up with your Primary Care Physician in: IN 1-2 WEEKS Test Results: Test results from this visit will be discussed in further detail at your follow- up appointment, if applicable.
--- NOTE | 2020-04-12 08:39 | DS.PCM_ITS ---
Discharge Date and Diagnosis - Problem List Patient Problems: Active and Suspected Problems Opiate dependence (Acute) Date of Admission: 04/08/20 Date of Discharge: 04/12/20 - Primary Discharge Diagnosis Acute Problems: Active Problems Opiate dependence (Acute) Hospital Course and Treatment Summary of Care Provided: The patient is a 34 year old M with history of chronic opioid use, dependence and tolerance admitted with acute opioid withdrawal symptoms of tremors, anxiety, restlessness, nausea and vomiting. Patient denies history of HIV or hepatitis C. Patient leukocytosis 14,000 with hemoglobin 17.1 suggestive of hemoconcentration and hypokalemia, K3.3. Patient was started on opioid withdrawal order set along with other supportive medications. Symptoms impr urbano. Patient also had chronic cigarette smoking/nicotine dependence and put on nicotine patch. Hypokalemia resolved. Patient patient has CKD stage III. Seen by [facility] program and outpatient follow-up appointment made. Discharge medication reconciliation done. Discharge follow-up instructions completed. Discharge process discussed with the patient and all questions were answered to patient's satisfaction. Patient Problems: Active and Suspected Problems Opiate dependence (Acute) Objective: Patient denies any acute withdrawal symptoms. Heart rate and blood pressure is good. Anxiety and restlessness are well controlled. Physical exam General: Alert, Oriented x3, Cooperative HEENT: Atraumatic, PERRLA, EOMI, Normocephalic Oral: No Gingival or Mucosal Lesions/ Ulcerations Neck: Supple, No JVD, Negative Carotid Bruits Lungs: Air entry equal in bilateral lung bases. No crepitation/rhonchi Cardiovascular: Regular rate, Regular Rhythm, Normal S1, Normal S2, No murmurs Abdomen: Bowel Sounds Present, Soft, Non Tender, Non-Distended : No renal angle tenderness. No suprapubic tenderness. Extremities: No edema, Capillary Refill Less than 3 Seconds Skin: No rashes, No breakdown Musculoskeletal: No Tenderness to Palpation of Joints or Extremities Neurological: Cranial nerves II-XII grossly intact, Deep Tendon Reflexes 2+/4 a nd Symmetrical, Neuro grossly intact Psych/Mental Status: Normal Affect, Appropriate. - Physical Exam Vitals/I&O's: Vital Signs Temp Pulse Resp BP Pulse Ox 98.9 F 85 16 127/78 H 99 04/12/20 06:00 04/12/20 06:00 04/12/20 06:00 04/12/20 06:00 04/12/20 06:00 Oxygen Delivery Method Room Air Weight: 207 lb 7.28 oz Body Mass Index (BMI) 25.9 Intake and Output for Last 24 Hours 04/10/20 04/11/20 04/12/20 23:59 23:59 23:59 Intake Total 2099 / 2099 1830 / 1830 Output Total 50 / 50 Balance 2049 Current Medications Benztropine Mesylate (Benztropine 2 Mg Tablet) 1 mg PO QHS [facility] Last Admin: 04/11/20 21:03 Dose: 1 mg Documented by: Clonidine (Clonidine Hcl 0.1 Mg Tablet) 0.1 mg PO Q8H PRN PRN PRN Reason: RESTLESSNESS Last Admin: 04/09/20 05:18 Dose: 0.1 mg Documented by: Dicyclomine HCl (Dicyclomine 10 Mg Capsule) 20 mg PO Q6H PRN PRN PRN Reason: Abdominal Discomfort Last Admin: 04/10/20 06:11 Dose: 20 mg Documented by: Divalproex Sodium (Divalproex (Er) 500 Mg Tablet) 500 mg PO BID [facility] Last Admin: 04/11/20 21:03 Dose: 500 mg Documented by: Gabapentin (Gabapentin 300 Mg Capsule) 300 mg PO Q8H PRN PRN PRN Reason: moderate to severe anxiety Hydroxyzine Pamoate (Hydroxyzine Roxi 25 Mg Capsule) 50 mg PO Q6H PRN PRN PRN Reason: mild anxiety Last Admin: 04/08/20 15:55 Dose: 50 mg Documented by: Loperamide HCl (Loperamide 2 Mg Capsule) 2 mg PO Q4H PRN PRN PRN Reason: LOOSE STOOLS Methocarbamol (Methocarbamol 750 Mg Tablet) 1,500 mg PO Q6H PRN PRN PRN Reason: MUSCLE SPASM Last Admin: 04/08/20 22:03 Dose: 1,500 mg Documented by: Nicotine (Nicotine 21 Mg Patch) 21 mg TD DAILY [facility] Last Admin: 04/11/20 09:26 Dose: 21 mg Documented by: Nicotine Polacrilex (Nicotine Polacrilex 2 Mg Gum) 2 mg PO Q2H PRN PRN PRN Reason: Nicotine Craving Last Admin: 04/11/20 18:28 Dose: 2 mg Documented by: Ondansetron HCl (Ondansetron 8 Mg Tablet) 8 mg PO Q8H PRN PRN PRN Reason: NAUSEA Last Admin: 04/10/20 06:11 Dose: 8 mg Documented by: Ondansetron HCl (Ondansetron 4 Mg/2 Ml Vial) 4 mg IV Q6H PRN PRN PRN Reason: NAUSEA Promethazine HCl (Promethazine 25 Mg Tablet) 25 mg PO Q6H PRN PRN PRN Reason: NAUSEA Last Admin: 04/08/20 21:45 Dose: 25 mg Documented by: Risperidone (Risperidone 2 Mg Tablet) 2 mg PO BID [facility] Last Admin: 04/11/20 21:03 Dose: 2 mg Documented by: Sodium Chloride (0.9% Saline Lock 10 Ml Syringe) 10 - 40 ml IV UD PRN PRN Reason: SALINE FLUSH Last Admin: 04/08/20 17:00 Dose: 10 ml Documented by: Trazodone HCl (Trazodone 100 Mg Tablet) 100 mg PO QHS PRN PRN PRN Reason: INSOMNIA Home Medications: Medications to take at Discharge Benztropine [Cogentin] 1 mg PO QHS 04/08/20 Divalproex Sodium [Depakote ER] 500 mg PO BID 04/08/20 Papaya [Papaya Enzyme] 1 ea PO DAILY 04/08/20 Risperidone 2 mg PO BID 04/08/20 proMETHazine tablet [Phenergan tablet] 25 mg PO Q6H PRN PRN 04/08/20 traZODone [Desyrel] 50 mg PO QHS 04/08/20 Primary Care Physician: NOT,DEFINED [NON-STAFF] - Medical Necessity - Tobacco Use Smoking Status: Current every day smoker Tobacco Use: Cigarettes, Cigars, Chew, Pipe, Vapor Meaningful Use Info Meaningful Use Diagnoses (Choose all that apply): None applicable Inpatient E&M: 33749 [facility] Hosp
[2020-04-12 09:35] VITALS: BP 128/83; PULSE 78; RESP 18; TEMP 36.7; O2SAT 97
[2020-04-12] MEDS: Divalproex (ER) 500 MG Tablet PO (09:44)
[2020-04-12] MEDS: RisperiDONE 2 MG Tablet PO (09:46)
--- NOTE | 2020-04-12 10:02 | ADDICTION ---
This journalists and other writers met with PT in his room to finalize d/c plan. PT to directly admit to [facility] upon d/c from [facility]. [employer] to provide transportation.
[2020-04-12 10:33] VITALS: BP 110/68; PULSE 97; RESP 18; TEMP 36.7; O2SAT 98
== END 2020-04-12 10:33 | disposition home or self-care (01) | DRG 897 ==
LOC: ED 13:55 → MS3 14:22
PROVIDERS: Admitting Provider Family Medicine; Emergency Provider Emergency Medicine; Visit Provider Internal Medicine
DX: F11.23 Opioid dependence with withdrawal (principal); F25.0 Schizoaffective disorder, bipolar type; N18.30 Chronic kidney disease, stage 3 unspecified; E87.6 Hypokalemia; F17.210 Nicotine dependence, cigarettes, uncomplicated; Z79.899 Other long term (current) drug therapy
CPT/HCPCS: 36415; 80048; 80053; 80307; 81001; 82077; 83690; 83735; 84100; 85025; 87426; 99285; 99406; J7030; A4216; J2405